=== PATIENT | female | born 1945 | race Caucasian/White ===

== ENCOUNTER 2017-08-29 13:15 | Emergency (ER) | payer OTHER, MEDICARE ==
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
[2017-08-29 15:16] LABS: BASO % 0.5 % (0-2.0); HEMATOCRIT 37.3 % (32.4-45.2); HEMOGLOBIN 13.1 GM/dl (10.7-15.3); LYMPH % 20.4 % (8-40); MCH 30.1 pg (25.7-33.7); MEAN CELL VOLUME 85.9 fl (80-96); MEAN PLT VOLUME 7.6 fl (7.5-11.1); MONO % 3.3 % (3.8-10.2); NEUT % 75.8 % (42.8-82.8); PLATELET COUNT 260 K/MM3 (134-434); RBC 4.35 M/mm3 (3.60-5.2); RDW 12.7 % (11.6-15.6); WHITE BLOOD COUNT 9.1 K/mm3 (4.0-10.8)
[2017-08-29 15:27] LABS: ACTIVATED PTT 27.3 SECONDS (24.0-38.9)
[2017-08-29 15:31] LABS: INR 1.15 (0.82-1.09); PROTHROMBIN TIME (PATIENT) 12.8 SEC (10.2-13.0)
[2017-08-29 15:33] LABS: ANION GAP 9 (8-16); BLOOD UREA NITROGEN 28 mg/dl (7-18); CALCIUM 9.4 mg/dl (8.4-10.2); CHLORIDE 103 mmol/L (98-107); CHOLESTEROL 197 mg/dl; CO2 23 mmol/L (22-28); GLUCOSE,RANDOM 141 mg/dl (74-106); HDL CHOLESTEROL 48 mg/dl (29-89); SODIUM 135 mmol/L (136-145); TOT PROT 6.8 g/dl (6.4-8.3); TRIGLYCERIDES 90 mg/dl (35-160)
[2017-08-29 15:34] LABS: ALBUMIN 4.2 g/dl (3.5-5.0); ALK PHOS 110 U/L (32-92); SGOT/AST 28 U/L (10-42); SGPT/ALT 37 U/L (10-40)
[2017-08-29 15:51] LABS: BILIRUBIN,TOTAL 0.5 mg/dl (0.2-1.0)
[2017-08-29 15:53] LABS: LDL CHOLESTEROL (ONLY SJRH) 131 mg/dL (5-100)
[2017-08-29 17:52] VITALS: BMI 29.9
[2017-08-29 18:10] VITALS: BP 126/58; PULSE 79; TEMP 97.8
--- NOTE | 2017-08-31 10:23 | EKG ---
Test Reason : Blood Pressure : / mmHG Vent. Rate : 074 BPM Atrial Rate : 074 BPM P-R Int : 164 ms QRS Dur : 082 ms QT Int : 410 ms P-R-T Axes : 040 -09 027 degrees QTc Int : 455 ms NORMAL SINUS RHYTHM VOLTAGE CRITERIA FOR LEFT VENTRICULAR HYPERTROPHY ABNORMAL ECG WHEN COMPARED WITH ECG OF 31-DEC-2015 11:15, T WAVE AMPLITUDE HAS INCREASED IN LATERAL LEADS Confirmed by CHRISTINA AWAN, NANDINI ([id number]) on 08/31/2017 10:22:59 AM Referred By: SATNAM Confirmed By:NANDINI VASQUEZ MD
== END 2017-08-29 18:00 | disposition left against medical advice (07) ==
LOC: FER 13:15
DX: R47.01 Aphasia (principal); S52.561A Barton's fracture of right radius, initial encounter for closed fracture; X58.XXXA Exposure to other specified factors, initial encounter; Y93.9 Activity, unspecified; Y92.9 Unspecified place or not applicable; I10 Essential (primary) hypertension; J45.909 Unspecified asthma, uncomplicated; I49.9 Cardiac arrhythmia, unspecified; V43.52XA Car driver injured in collision with other type car in traffic accident, initial encounter; Y93.89 Activity, other specified; Y92.410 Unspecified street and highway as the place of occurrence of the external cause
CPT/HCPCS: 36415; 70450-TC; 73110-TC-RT-FY; 80053; 82465; 82550; 83718; 83721; 84478; 84484; 85025; 85610; 85730; 86850; 86900; 86901; 93005; 99284-25

== ENCOUNTER 2017-09-08 07:07 | Day surgery (SDC) | payer OTHER, MEDICARE ==
[2017-09-07 09:09] VITALS: BMI 29.9
[2017-09-08 11:56] VITALS: BP 137/66; PULSE 58
[2017-09-08 12:43] VITALS: TEMP 98.2
== END 2017-09-08 12:40 | disposition home or self-care (01) ==
LOC: JASU-SURG 07:07
PROVIDERS: ATTEND Orthopaedic Surgery
PROC: 0PSH04Z Reposition Right Radius with Internal Fixation Device, Open Approach (ICD-10-PCS; principal; 2017-09-08)
DX: S52.571A Other intraarticular fracture of lower end of right radius, initial encounter for closed fracture (principal); X58.XXXA Exposure to other specified factors, initial encounter; Y93.9 Activity, unspecified; Y92.9 Unspecified place or not applicable; Y99.9 Unspecified external cause status
CPT/HCPCS: 25608; C1713; 76000-TC-FY; 81003; 81015; 94760

== ENCOUNTER 2018-04-27 06:04 | Day surgery (SDC) | payer OTHER, MEDICARE ==
[2018-04-26 14:40] VITALS: BMI 28.3
[2018-04-27] MEDS ORDERED: MIDAZOLAM HCL 2 MG/2 ML SINGLE DOSE VIAL ONE (07:34)
[2018-04-27] MEDS ORDERED: LIDOCAINE HCL/PF 2% SDV 5ML VIAL ONE (07:34)
[2018-04-27] MEDS ORDERED: DEXAMETHASONE SOD PHOSPHATE 4 MG/1 ML VIAL ONE (07:34)
[2018-04-27] MEDS ORDERED: SUCCINYLCHOLINE CHLORIDE 200 MG/10 ML VIAL ONE (07:34)
[2018-04-27] MEDS ORDERED: PROPOFOL 20 ML ONE (07:34)
[2018-04-27] MEDS ORDERED: BUPIVACAINE HCL/PF 0.5% (5MG/ML) 10 ML VIAL ONE (07:44)
--- NOTE | 2018-04-27 08:22 | HP ---
Satellite [facility] - Chief Complaint Chief Complaint: right knee pain History of Present Illness: right knee medial meniscus tear, OA History Source: Patient Limitations to Obtaining History: No Limitations - Past Medical History Allergies/Adverse Reactions: Allergies Allergy/AdvReac Type Severity Reaction Status Date / Time aspirin Allergy Hives Verified 04/27/18 06:40 Sulfa (Sulfonamide Allergy Itching Verified 04/27/18 06:40 Antibiotics) [Sulfa(Sulfonamide Antibiotics)] Cardiovascular: Yes: HTN, Hyperlipdemia - Current Medications Current Medications: Home Medications Medication Instructions Recorded Aliskiren Hemifumarate [Tekturna -] 300 mg PO DAILY 06/16/14 Atorvastatin Ca [Lipitor] 20 mg PO HS 06/16/14 Clopidogrel Bisulfate [Plavix -] 75 mg PO DAILY 06/16/14 Amlodipine Besylate [Norvasc -] 10 mg PO DAILY 07/23/15 Flecainide Acetate 100 mg PO BID 07/23/15 Hydralazine HCl 25 mg PO TID 07/23/15 Nebivolol HCl [Bystolic] 20 mg PO DAILY 07/23/15 Valsartan [Diovan] 320 mg PO DAILY tablet 01/05/16 Satellite Physical Exam - Physical Examination Vital Signs: Vital Signs Period Temp Pulse Resp BP Sys/Jimenez Pulse Ox Last 24 Hr 97.8 F-97.8 F 57-57 20-20 135-135/70-70 96 General Appearance: Well Nourished ENT: Clear Lung: Clear to auscultation Heart: Regular rate & rhythm Breasts: Soft Abdomen: Soft Extremities: No edema Satellite Impression/Plan - Impression/Plan Impression: right knee medial meniscus tear, OA Operative Procedure: right knee arthroscopy Date to be Performed: 04/27/18
[2018-04-27] MEDS ORDERED: ceFAZolin SODIUM 1 GM VIAL IVPB ONE (08:29)
[2018-04-27] MEDS ORDERED: ceFAZolin SODIUM 1 GM VIAL ONE (08:31)
[2018-04-27] MEDS ORDERED: ONDANSETRON 4 MG/2 ML VIAL IVPUSH PRN (08:56)
[2018-04-27] MEDS ORDERED: LACTATED RINGERS SOLUTION 1,000 ML IV SCH (09:00)
[2018-04-27] MEDS ORDERED: BUPIVACAINE HCL/PF (5 MG/ML) 30 ML VIAL IJ ONE (09:04)
--- NOTE | 2018-04-27 09:21 | OP ---
Operative Note - Note: Operative Date: 04/27/18 Pre-Operative Diagnosis: right knee pain, MM tear. OA Operation: right knee arthroscopy, partial medial meniscectomy, debridement chondroplasty Post-Operative Diagnosis: Same as Pre-op Surgeon: Didier Faulkner Anesthesiologist/DIGITAL AD TRAFFICKER: Kiara Jordan Anesthesia: General, Local, MAC Specimens Removed: shavings Estimated Blood Loss (mls): 20 Blood Volume Replaced (mls): 0 Fluid Volume Replaced (mls): 500 Operative Report Dictated: Yes
--- NOTE | 2018-04-27 10:29 | OP ---
DATE OF OPERATION: 04/27/2018 PREOPERATIVE DIAGNOSES: Right knee pain, medial meniscus tear and osteoarthritis. POSTOPERATIVE DIAGNOSES: Right knee pain, medial meniscus tear and osteoarthritis. PROCEDURE: Right knee arthroscopy, partial medial meniscectomy and debridement chondroplasty. SURGEON: Didier Faulkner MD RN NEONATAL: None. MINER ASSISTANT: Kiara Jordan CRNA DRAINS: None. COMPLICATIONS: None. SPECIMEN: Arthroscopic shavings. BLOOD LOSS: 20 mL. BLOOD GIVEN: None. FLUID REPLACEMENT: Plasma-Lyte 500 mL. This patient is a 72-year-old female with preoperative diagnoses of right knee pain, a medial meniscus tear and osteoarthritis. After understanding the potential risks, complications, alternatives, benefits of surgical versus nonsurgical treatment the patient has elected to undergo this procedure. The patient does understand she will not get completely better because she will still have osteoarthritis. I can clean it up as much as possible, but I do not expect her to have complete relief of her symptoms or pain. She may very well need a total knee replacement at some point. This also does not slow down the progression of the osteoarthritis or prevent the potential need for a knee replacement. The patient was brought to the operating room. Peripheral IV placed. IV sedation given. IV Ancef 2 g were given. LMA anesthesia was induced. The right lower extremity was placed into the C-clamp leg henley with ample padding throughout. Prepped and draped in sterile fashion. Elevated. Exsanguinated with an Esmarch bandage. Tourniquet inflated to 275 mmHg. A superomedial outflow portal was established. A lateral portal was established under direct visualization using a spinal needle. A medial portal was established and diagnostic arthroscopy was performed. In the medial compartment the patient had a complex tear of the body and posterior horn of the medial meniscus. This was debrided with a curved up-biter, a right biter and a curved shaver. I would estimate that 60% of the body and posterior horn of the medial meniscus were removed. The patient had large fissures and cracks in the medial femoral condyle. Articular cartilage seemed to be stable. However, it was left alone but photographed. The ACL looked good. The lateral compartment had no lateral meniscus tear but an area about the size of a quarter of grade 4 osteoarthritis on the lateral femoral condyle with additional cracks and fissures going out from there. This was gently debrided. The lateral tibial plateau had a crabmeat effect grade 2 chondromalacia. This was gently debrided as well. Next our attention was directed to the patellofemoral joint which was the worst of the 3. There were large areas of grade 4 osteoarthritis on the undersurface of the patella and grade 3 osteoarthritis with small cracks and grade 4 osteoarthritis of the femoral trochlea. This was also gently debrided. After the debridement chondroplasty the area was copiously irrigated and washed out. All instrumentation, excess saline and debris were removed. The arthroscopy portals were closed with 3-0 nylon sutures. Marcaine 0.5%, 20 mL, was introduced into the joint. The area was then washed and dried, covered with Xeroform gauze, 4 x 4 gauze, Webril and an Aung bandage. The tourniquet was taken down after a total tourniquet time of 25 minutes. There were no complications during the case. The patient tolerated the procedure quite well. Tavia [id number]
[2018-04-27 19:53] VITALS: BP 130/70; PULSE 68; TEMP 98.2
--- NOTE | 2018-04-28 18:46 | PATH ---
Surgical Pathology Report Patient Name: RHIANNON HANCOCK Med. Rec. #: [id number] /Age/Gender: 1945 (Age: 72) / F Account: [id number] Location: [facility] SURGICAL Taken: 04/27/2018 Received: 04/27/2018 Reported: 04/28/2018 Physicians: Didier Faulkner M.D. Specimen(s) Received RIGHT KNEE SHAVINGS Clinical History Right knee tear Final Diagnosis KNEE SHAVINGS, RIGHT, ARTHROSCOPY, PARTIAL MEDIAL MENISCECTOMY, CHONDROPLASTY DEBRIDEMENT: FRAGMENTS OF CARTILAGE, ADIPOSE TISSUE, SYNOVIUM, AND RARE CALCIFIC AGGREGATES CONSISTENT WITH CHONDROCALCINOSIS. Electronically Signed Lyric Addison M.D. Gross Description Received in formalin, labeled "right knee shavings," is a 5.3 x 4.0 x 0.6 cm. aggregate of evans-yellow soft tissue fragments. A territory service representative portion is submitted in one cassette. /04/27/2018 saudi04/27/2018
== END 2018-04-27 13:00 | disposition home or self-care (01) ==
LOC: JASU-SURG 06:04
PROVIDERS: ATTEND Orthopaedic Surgery
PROC: 0SBC4ZZ Excision of Right Knee Joint, Percutaneous Endoscopic Approach (ICD-10-PCS; principal; 2018-04-27 08:00)
DX: M23.205 Derangement of unspecified medial meniscus due to old tear or injury, unspecified knee (principal); M17.11 Unilateral primary osteoarthritis, right knee
CPT/HCPCS: 88304-TC; 94760; 97116-GP

== ENCOUNTER 2018-10-19 13:04 | Emergency (ER) | payer OTHER, MEDICARE ==
[2018-10-19 13:12] VITALS: BP 170/57; PULSE 68; TEMP 98.1; BMI 26.6
--- NOTE | 2018-10-19 13:13 | PDOC ---
Rapid Medical Evaluation Time Seen by Provider: 10/19/18 13:08 Medical Evaluation: Allergies Allergy/AdvReac Type Severity Reaction Status Date / Time acetaminophen [From Tylenol] Allergy "itchy" Verified 04/27/18 12:50 aspirin Allergy Hives Verified 04/27/18 12:50 Sulfa (Sulfonamide Allergy Itching Verified 04/27/18 12:50 Antibiotics) [Sulfa(Sulfonamide Antibiotics)] 10/19/18 13:08 I have performed a brief in-person evaluation of this patient. The patient presents with a chief complaint of: laceration, cut on piece of glass on Tuesday and still bleeding - taking xarelto for afib - cards dr. arias. UTD with tetatus Pertinent physical exam findings: well appearing, healing lac to base of right thumb I have ordered the following: nothing The patient will proceed to the ED for further evaluation.
--- NOTE | 2018-10-19 15:17 | PDOC ---
History of Present Illness - General Chief Complaint: Injury Stated Complaint: FINGER INJURY Time Seen by Provider: 10/19/18 13:08 History Source: Patient Exam Limitations: No Limitations - History of Present Illness Initial Comments: 10/19/18 15:13 HISTORY OF PRESENT ILLNESS: This 72-year-old woman past medical history of hypertension and A. fib on Xarelto presents emergency department for evaluation of laceration to the base of the right thumb which was sustained on Tuesday. Patient reports she was closing a window when it slipped forcing her hand down onto a glass neck neck which was underneath the open window. Patient reports the glass broke but is unsure if that's what lacerated her hand. Patient resents today for evaluation for continued bleeding. No recent travel or sick contacts. PAST MEDICAL HISTORY: see HPI SURGICAL HISTORY: Denies ALLERGIES: Aspirin, Tylenol, sulfa REVIEW OF SYSTEMS General/Constitutional: Denies fever or chills. Denies weakness, weight change. HEENT: Denies change in vision. Denies ear pain or discharge. Denies sore throat. Cardiovascular: Denies chest pain or shortness of breath. Respiratory: Denies cough, wheezing, or hemoptysis. Gastrointestinal: Denies nausea, vomiting, diarrhea or constipation. Denies rectal bleeding. Genitourinary: Denies dysuria, frequency, or change in urination. Musculoskeletal: Denies joint or muscle swelling or pain. Denies neck or back pain. Skin and breasts: See HPI Neurologic: Denies headache, vertigo, loss of consciousness, or loss of sensation. Psychiatric: Denies depression or anxiety. Endocrine: Denies increased thirst. Denies abnormal weight change. Hematologic/Lymphatic: Denies anemia, easy bleeding, or history of blood clots. Allergic/Immunologic: Denies hives or skin allergy. Denies latex allergy. PHYSICAL EXAM General Appearance: Well-appearing, appropriately dressed. No apparent distress , no intoxication. HEENT: EOMI, PERRLA, normal ENT inspection, normal voice, TMs normal, pharynx normal. No conjunctival pallor. No photophobia, scleral icterus. Neck: Supple. Trachea midline. No tenderness, rigidity, carotid bruit, stridor , lymphadenopathy, or thyromegaly. Respiratory/Chest: Lungs CTAB. No shortness of breath, chest tenderness, respiratory distress, accessory muscle use. No crackles, rales, rhonchi, stridor , wheezing, dullness Cardiovascular: RRR. S1, S2. No JVD, murmur, bradycardia, tachycardia. Vascular Pulses: Dorsalis-Pedis (R): 2+, Dorsalis-Pedis (L): 2+ Gastrointestinal/Abdominal: Normal bowel sounds. Abdomen soft, non-distended. No tenderness or rebound tenderness. No organomegaly, pulsatile mass, guarding, hernia, hepatomegaly, splenomegaly. Lymphatic: No adenopathy, tenderness. Musculoskeletal/Extremities: Normal inspection. FROM of all extremities, normal capillary refill. Pelvis Stable. No CVA tenderness. No tenderness to extremities, pedal edema, swelling, erythema or deformity. Integumentary: Approximate 2 cm linear superficial laceration present to the base of the right thumb on the palmar surface. Bleeding is well-controlled at this time. No retained debris or foreign body present. Neurologic: bicycle repairman II-XII intact. Fully oriented, alert. Appropriate mood/affect. Motor strength 5/5. No appreciable EOM palsy, facial droop or sensory deficit. Past History - Past Medical History Allergies/Adverse Reactions: Allergies Allergy/AdvReac Type Severity Reaction Status Date / Time acetaminophen [From Tylenol] Allergy "itchy" Verified 10/19/18 14:53 aspirin Allergy Hives Verified 10/19/18 14:53 Sulfa (Sulfonamide Allergy Itching Verified 10/19/18 14:53 Antibiotics) [Sulfa(Sulfonamide Antibiotics)] Home Medications: Ambulatory Orders [place] Hemifumarate [Tekturna -] 300 mg PO DAILY 06/16/14 Atorvastatin Ca [Lipitor] 20 mg PO HS 06/16/14 Clopidogrel Bisulfate [Plavix -] 75 mg PO DAILY 06/16/14 Amlodipine Besylate [Norvasc -] 10 mg PO DAILY 07/23/15 Hydralazine HCl 25 mg PO TID 07/23/15 Nebivolol HCl [Bystolic] 20 mg PO DAILY 07/23/15 Anemia: Yes (HEMACHROMATOSIS) Asthma: Yes Cancer: No Cardiac Disorders: Yes (ARHYTHMIAS) CVA: No COPD: Yes CHF: No Dementia: No Diabetes: No GI Disorders: No Disorders: No HTN: Yes Hypercholesterolemia: Yes Liver Disease: No Seizures: No Thyroid Disease: No - Surgical History Orthopedic Surgery: Yes (wrist ORIF, L Knee, Femur ORIF) - Suicide/Smoking/Psychosocial Hx Smoking Status: No Smoking History: Unknown if ever smoked Have you smoked in the past 12 months: No Number of Cigarettes Smoked Daily: 0 Information on smoking cessation initiated: No Hx Alcohol Use: No Drug/Substance Use Hx: No Substance Use Type: None Hx Substance Use Treatment: No *Physical Exam - Vital Signs Last Vital Signs Temp Pulse Resp BP Pulse Ox 98.1 F 68 16 170/57 L 100 10/19/18 13:09 10/19/18 13:09 10/19/18 13:09 10/19/18 13:09 10/19/18 13:09 Medical Decision Making - Medical Decision Making 10/19/18 15:16 A/P: 72-year-old woman for evaluation of bleeding from laceration sustained 10/16. Wound edges well approximate it. No signs and symptoms of infection. Up-to-date with tetanus Bleeding controlled at present. Dry sterile dressing Discharge home *DC/Admit/Observation/Transfer Diagnosis at time of Disposition: Laceration - Discharge Dispostion Disposition: HOME Condition at time of disposition: Stable Decision to Admit order: No - Referrals Referrals: Ophelia Stone MD [Primary Care Provider] - - Patient Instructions Additional Instructions: Keep dressing on hand for the first 24 hours. Do not remove or inspect the wounds for a minimum of 24 hours. Return to emergency department for any new or worsening symptoms. Thank you very much for choosing us to provide your emergent health care needs. - Post Discharge Activity
== END 2018-10-19 15:23 | disposition home or self-care (01) ==
LOC: JERFT 13:04
DX: S61.011A Laceration without foreign body of right thumb without damage to nail, initial encounter (principal); W25.XXXA Contact with sharp glass, initial encounter; Y93.89 Activity, other specified; Y92.89 Other specified places as the place of occurrence of the external cause; Y99.8 Other external cause status; I10 Essential (primary) hypertension; I48.91 Unspecified atrial fibrillation; Z79.01 Long term (current) use of anticoagulants
CPT/HCPCS: 99281-25

== ENCOUNTER 2021-01-19 15:10 | Inpatient (IN) | payer OTHER, MEDICARE ==
[2021-01-19] MEDS ORDERED: HYDROCHLOROTHIAZIDE 25 MG TABLET (FP) PO ONE (17:49)
[2021-01-19] MEDS ORDERED: NIFEdipine E.R. 30 MG TABLET PO ONE (17:52)
[2021-01-19] MEDS ORDERED: NIFEdipine E.R. 30 MG TABLET ONE (18:06)
[2021-01-19] MEDS ORDERED: HYDROCHLOROTHIAZIDE 25 MG TABLET (FP) ONE (18:06)
[2021-01-19 18:13] LABS: BASO % 0.1 % (0-2.0); HEMATOCRIT 36.6 % (32.4-45.2); HEMOGLOBIN 12.4 GM/dL (10.7-15.3); LYMPH % 12.9 % (8-40); MCH 29.1 pg (25.7-33.7); MEAN CELL VOLUME 85.6 fl (80-96); MEAN PLT VOLUME 7.5 fl (7.5-11.1); MONO % 3.3 % (3.8-10.2); NEUT % 83.7 % (42.8-82.8); PLATELET COUNT 281 10^3/uL (134-434); RBC 4.28 M/mm3 (3.60-5.2); RDW 14.3 % (11.6-15.6); WHITE BLOOD COUNT 11.3 K/mm3 (4.0-10.0)
[2021-01-19 18:34] LABS: BLOOD UREA NITROGEN 16.6 mg/dL (7-18); CALCIUM 9.5 mg/dL (8.5-10.1)
[2021-01-19 18:35] LABS: ALBUMIN 4.2 g/dl (3.4-5.0)
[2021-01-19 18:38] LABS: CREATININE 1.3 mg/dL (0.55-1.3)
[2021-01-19 18:39] LABS: BILIRUBIN,TOTAL 0.4 mg/dL (0.2-1); TOT PROT 7.8 g/dl (6.4-8.2)
[2021-01-19] MEDS ORDERED: diazePAM 5 MG TABLET PO ONE (20:31)
[2021-01-20 06:03] LABS: BASO % 0.6 % (0-2.0); HEMATOCRIT 35.2 % (32.4-45.2); HEMOGLOBIN 12.2 GM/dL (10.7-15.3); LYMPH % 25.8 % (8-40); MCHC 34.7 g/dl (32.0-36.0); MEAN CELL VOLUME 86.4 fl (80-96); MEAN PLT VOLUME 7.7 fl (7.5-11.1); MONO % 4.2 % (3.8-10.2); NEUT % 69.4 % (42.8-82.8); PLATELET COUNT 244 10^3/uL (134-434); RBC 4.07 M/mm3 (3.60-5.2); RDW 14.2 % (11.6-15.6); WHITE BLOOD COUNT 8.2 K/mm3 (4.0-10.0)
[2021-01-20 06:10] LABS: BLOOD UREA NITROGEN 16.8 mg/dL (7-18); CALCIUM 9.3 mg/dL (8.5-10.1)
[2021-01-20 06:14] LABS: CREATININE 1.1 mg/dL (0.55-1.3)
[2021-01-20 06:45] LABS: INR 1.17 (0.83-1.09); PROTHROMBIN TIME (PATIENT) 14.3 SEC (9.7-13.0)
[2021-01-20 06:48] LABS: ACTIVATED PTT 28.7 SECONDS (25.2-36.5)
[2021-01-20] MEDS ORDERED: ALISKIREN HEMIFUMARATE 150 MG TABLET PO SCH (10:00)
[2021-01-20] MEDS ORDERED: ALPRAZolam 0.25 MG TABLET PO PRN (11:34)
[2021-01-20] MEDS: NEBIVOLOL 10 MG TABLET (FP) PO SCH (13:27)
[2021-01-20] MEDS: EZETIMIBE 10 MG TABLET (FP) PO SCH (13:28)
[2021-01-20] MEDS: DRONEDARONE HCL 400 MG TAB (FP) PO SCH ×2 (13:28→18:23)
[2021-01-20] MEDS ORDERED: hydrALAZINE HCL 25 MG TABLET (FP) PO SCH (14:00)
[2021-01-20] MEDS ORDERED: RIVAROXABAN 20 MG TABLET PO SCH (18:00)
[2021-01-20] MEDS: hydrALAZINE HCL 50 MG TABLET (FP) PO SCH (18:23)
[2021-01-20] MEDS ORDERED: ATORVASTATIN CA 40 MG TABLET (FP) PO SCH (22:00)
[2021-01-21 00:35] VITALS: BMI 32.3
[2021-01-21] MEDS: hydrALAZINE HCL 50 MG TABLET (FP) PO SCH ×2 (01:11→06:04)
[2021-01-21] MEDS: EZETIMIBE 10 MG TABLET (FP) PO SCH (09:32)
[2021-01-21] MEDS: NEBIVOLOL 10 MG TABLET (FP) PO SCH (09:32)
[2021-01-21] MEDS ORDERED: PT OWN MED DRAWER 7, Y5N ONE ×2 (10:20→11:13)
[2021-01-21] MEDS: DRONEDARONE HCL 400 MG TAB (FP) PO SCH (11:04)
[2021-01-21 14:23] LABS: ALBUMIN 3.8 g/dl (3.4-5.0); CALCIUM 9.2 mg/dL (8.5-10.1)
[2021-01-21 14:24] LABS: BLOOD UREA NITROGEN 24.9 mg/dL (7-18)
[2021-01-21 14:27] LABS: CREATININE 1.3 mg/dL (0.55-1.3)
[2021-01-21 14:28] LABS: BILIRUBIN,TOTAL 0.6 mg/dL (0.2-1); TOT PROT 6.7 g/dl (6.4-8.2)
[2021-01-21 14:45] VITALS: BP 158/54; PULSE 65; TEMP 98.5
== END 2021-01-21 16:50 | disposition home or self-care (01) | DRG 281 ==
LOC: JER 15:10 → JERBED 18:54 → J4W 01-21 00:02
PROVIDERS: ADMIT Internal Medicine; ATTEND Internal Medicine
DX: I21.4 Non-ST elevation (NSTEMI) myocardial infarction (principal); I45.2 Bifascicular block; I47.1 Supraventricular tachycardia; I10 Essential (primary) hypertension; J44.9 Chronic obstructive pulmonary disease, unspecified; I48.91 Unspecified atrial fibrillation; H43.399 Other vitreous opacities, unspecified eye; E78.5 Hyperlipidemia, unspecified; I45.10 Unspecified right bundle-branch block; F41.9 Anxiety disorder, unspecified; I25.10 Atherosclerotic heart disease of native coronary artery without angina pectoris; I35.1 Nonrheumatic aortic (valve) insufficiency; F43.10 Post-traumatic stress disorder, unspecified; J45.909 Unspecified asthma, uncomplicated; I11.9 Hypertensive heart disease without heart failure; R77.8 Other specified abnormalities of plasma proteins; I77.819 Aortic ectasia, unspecified site
CPT/HCPCS: 36415; 71045-TC-FY; 80048; 80053; 82550; 84443; 84484; 85025; 85610; 85730; 93005; 93010; 93306-TC; 99285-25; C9803; U0003; U0005

== ENCOUNTER 2022-04-26 18:40 | Emergency (ER) | payer OTHER, MEDICARE ==
[2022-04-26 19:14] VITALS: BP 193/96; PULSE 80; RESP 18; TEMP 98.7; BMI 28.3
[2022-04-26] MEDS ORDERED: DIPHTH,PERTUSS(ACELL),TET 0.5 ML DISP.SYRIN IM ONE ×2 (21:27→21:29)
== END 2022-04-26 21:41 | disposition home or self-care (01) ==
LOC: FER 18:40
PROC: 3E0234Z Introduction of Serum, Toxoid and Vaccine into Muscle, Percutaneous Approach (ICD-10-PCS; principal; 2022-04-26)
DX: S62.346A Nondisplaced fracture of base of fifth metacarpal bone, right hand, initial encounter for closed fracture (principal); S00.03XA Contusion of scalp, initial encounter; S00.81XA Abrasion of other part of head, initial encounter; W01.0XXA Fall on same level from slipping, tripping and stumbling without subsequent striking against object, initial encounter
CPT/HCPCS: 70450-TC; 70486-TC; 73130-TC-RT-FY; 73560-TC-RT-FY; 90471; 90715; 99285-25